=== PATIENT | female | born 2000 | race Caucasian/White ===

== ENCOUNTER 2022-04-05 11:03 | Emergency (ER) | payer MEDICAID ==
[2022-04-05] MEDS ORDERED: Ibuprofen 800 MG Tab PO ONE (11:37)
== END 2022-04-05 12:47 | disposition home or self-care (01) ==
LOC: FB.ED 11:03
DX: S93.402A Sprain of unspecified ligament of left ankle, initial encounter (principal); X50.1XXA Overexertion from prolonged static or awkward postures, initial encounter
CPT/HCPCS: 73610; 99283; A9270